=== PATIENT | female | born 1995 | race Caucasian/White ===

== ENCOUNTER 2018-01-13 14:02 | Emergency (ER) | payer OTHER ==
[2018-01-13] MEDS ORDERED: NA CHLORIDE 0.9% 1,000 ML ONE (14:41)
[2018-01-13 15:04] LABS: Absolute Lymphocytes (CBC) 1.6 K/uL (0.7-4.9); Absolute Monocytes 0.8 K/uL (0.1-1.3); Absolute Neutrophil 10.1 K/uL (1.8-8.0); Basophils % 0.3 % (0-1.3); Eosinophils % 0.6 % (0-4.4); Hematocrit 28.7 % (36.0-45.0); Lymphocytes % 12.7 % (15.3-44.8); MCH 31.1 pg (27.0-35.0); MPV 8.4 fL (7.6-11.3); RBC Red Blood Cell Count 3.15 M/uL (3.86-4.86)
[2018-01-13 15:23] LABS: ALT/SGPT 20 U/L (12-78); AST/SGOT 13 U/L (15-37); Albumin 2.7 g/dL (3.4-5.0); Alkaline Phosphatase 67 U/L (45-117); BUN Blood Urea Nitrogen 7 mg/dL (7-18); Bicarbonate 24 mmol/L (21-32); Bilirubin Direct < 0.1 mg/dL (0-0.2); Bilirubin Total 0.2 mg/dL (0.2-1.0); Glucose Level 68 mg/dL (74-106); Lipase 78 U/L (73-393); Potassium 3.5 mmol/L (3.5-5.1); Protein, Total 6.6 g/dL (6.4-8.2); Sodium Level 140 mmol/L (136-145)
--- NOTE | 2018-01-13 16:30 | EDPHYS ---
Physician Documentation [facility] Name: Diana Ward Age: 22 yrs Sex: Female : 1995 Arrival Date: 01/13/2018 Time: 14:06 Bed 5 Private MD: Ekaterina Molina ED Physician Norberto Brown HPI: 01/13 14:52 This 22 yrs old Female presents to ER via Ambulatory with complaints of jr8 Nausea/Vomiting/Diarrhea. 14:52 The patient presents to the emergency department with nausea, vomiting, diarrhea. jr8 Onset: The symptoms/episode began/occurred acutely, 3 day(s) ago. Possible causes: unknown. The symptoms are aggravated by food , The symptoms are alleviated by nothing. Associated signs and symptoms: Pertinent positives: dizzy. Severity of symptoms: At their worst the symptoms were moderate in the emergency department the symptoms have improved moderately. The patient has not experienced similar symptoms in the past. The patient has not recently seen a physician. Patient with minimal nausea and diarrhea now. Feels dehydrated and dizzy from all the vomiting and diarrhea over the past few days. Patient 23 weeks . 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 - Social history:: Smoking status: Patient/guardian denies using tobacco. - Ebola Screening: : Patient negative for fever greater than or equal to 101.5 degrees Fahrenheit, and additional compatible Ebola Virus Disease symptoms Patient denies exposure to infectious person Patient denies travel to an Ebola-affected area in the 21 days before illness onset No symptoms or risks identified at this time. ROS: 14:52 Eyes: Negative for injury, pain, redness, and discharge, ENT: Negative for injury, jr8 pain, and discharge, Neck: Negative for injury, pain, and swelling, Cardiovascular: Negative for chest pain, palpitations, and edema, Respiratory: Negative for shortness of breath, cough, wheezing, and pleuritic chest pain, Back: Negative for injury and pain, MS/Extremity: Negative for injury and deformity, Skin: Negative for injury, rash, and discoloration, Neuro: Negative for headache, weakness, numbness, tingling, and seizure. 14:52 Abdomen/GI: Positive for nausea, vomiting, and diarrhea, Negative for abdominal pain, abdominal distension, anorexia, dysphagia, hematemesis, black/tarry stool, rectal pain, rectal bleeding, bowel incontinence, flatulence. Exam: 14:52 Eyes: Pupils equal round and reactive to light, extra-ocular motions intact. Lids and jr8 lashes normal. Conjunctiva and sclera are non-icteric and not injected. Cornea within normal limits. Periorbital areas with no swelling, redness, or edema. ENT: Nares patent. No nasal discharge, no septal abnormalities noted. Tympanic membranes are normal and external auditory canals are clear. Oropharynx with no redness, swelling, or masses, exudates, or evidence of obstruction, uvula midline. Mucous membranes moist. Neck: Trachea midline, no thyromegaly or masses palpated, and no cervical lymphadenopathy. Supple, full range of motion without nuchal rigidity, or vertebral point tenderness. No Meningismus. Cardiovascular: Regular rate and rhythm with a normal S1 and S2. No gallops, murmurs, or rubs. Normal PMI, no JVD. No pulse deficits. Respiratory: Lungs have equal breath sounds bilaterally, clear to auscultation and percussion. No rales, rhonchi or wheezes noted. No increased work of breathing, no retractions or nasal flaring. Abdomen/GI: Soft, non-tender, with normal bowel sounds. No distension or tympany. No guarding or rebound. No evidence of tenderness throughout. Gravid abdomen present Back: No spinal tenderness. No costovertebral tenderness. Full range of motion. Skin: Warm, dry with normal turgor. Normal color with no rashes, no lesions, and no evidence of cellulitis. MS/ Extremity: Pulses equal, no cyanosis. Neurovascular intact. Full, normal range of motion. Neuro: Awake and alert, GCS 15, oriented to person, place, time, and situation. Cranial nerves II-XII grossly intact. Motor strength 5/5 in all extremities. Sensory grossly intact. Cerebellar exam normal. Normal gait. Vital Signs: 14:14 BP 132 / 70; Pulse 100; Resp 17; Temp 98.8(TE); Pulse Ox 98% on R/A; sg 16:29 BP 112 / 64; Pulse 79; Resp 18; Pulse Ox 98% on R/A; ae1 MDM: 14:17 Patient medically screened. [facility] 14:52 Data reviewed: vital signs, nurses notes, lab test result(s). Data interpreted: Pulse 8 oximetry: on room air is 98 %. Interpretation: normal. 16:29 Counseling: I had a detailed discussion with the patient and/or guardian regarding: the jr8 historical points, exam findings, and any diagnostic results supporting the discharge/admit diagnosis, lab results, the need for outpatient follow up, a family practitioner, to return to the emergency department if symptoms worsen or persist or if there are any questions or concerns that arise at home. ED course: Patient able to tolerate fluids and food. Will send home on nausea medicine. To continue to hydrate. F/U with neurological surgeon in a few days . 01/13 14:31 Order name: Basic Metabolic Panel; Complete Time: 15:24 [facility] 01/13 14:31 Order name: CBC with Diff; Complete Time: 15:09 [facility] 01/13 14:31 Order name: Creatinine for Radiology; Complete Time: 15:22 [facility] 01/13 14:31 Order name: Hepatic Function; Complete Time: 15:24 [facility] 01/13 14:31 Order name: Lipase; Complete Time: 15:24 [facility] 01/13 14:31 Order name: Urine Test (obtain specimen); Complete Time: 16:34 [facility] 01/13 14:31 Order name: IV Saline Lock; Complete Time: 14:58 [facility] 01/13 14:31 Order name: Labs collected and sent; Complete Time: 14:58 [facility] 01/13 14:31 Order name: Urine Dipstick-Ancillary (obtain specimen); Complete Time: 16:34 [facility] 01/13 16:50 Order name: Urine Dipstick--Ancillary (enter results) eb Administered Medications: 14:58 Drug: NS 0.9% 1000 ml Route: IV; Rate: 1000 ml; Site: right antecubital; aj 17:19 Follow up: IV Status: Completed infusion ae1 Disposition: 17:22 Co-signature as Attending Physician, Norberto Brown MD I agree with the assessment and kdr plan of care. Disposition: 01/13/18 16:30 Discharged to Home. Impression: Gastroenteritis, Dehydration. - Condition is Stable. - Discharge Instructions: Dehydration, Adult. - Prescriptions for ondansetron 4 mg Oral tablet,disintegrating - take 1 tablet by ORAL route every 6-8 hours As needed; 12 tablet. - Medication Reconciliation Form, Thank You Letter, Antibiotic Education, Prescription Opioid Use, Work release form form. - Follow up: Ekaterina Molina MD; When: 5 - 6 days; Reason: Recheck today's complaints, Continuance of care, Re-evaluation by your physician. - Problem is new. - Symptoms have improved. Signatures: Dispatcher [employer] EDMS Juan Bautista RN RN Janice Hines RN RN Norberto Terrell MD MD kdr Boni Salazar PA PA jr8 Oscar Stanley RN RN ae1 Corrections: (The following items were deleted from the chart) 16:30 16:30 01/13/2018 16:30 Discharged to Home. Impression: Gastroenteritis. Condition is jr8 Stable. Forms are Medication Reconciliation Form, Thank You Letter, Antibiotic Education, Prescription Opioid Use. Follow up: Ekaterina Molina; When: 5 - 6 days; Reason: Recheck today's complaints, Continuance of care, Re-evaluation by your physician. Problem is new. Symptoms have improved. jr8 17:19 16:30 01/13/2018 16:30 Discharged to Home. Impression: Gastroenteritis; Dehydration. ae1 Condition is Stable. Forms are Medication Reconciliation Form, Thank You Letter, Antibiotic Education, Prescription Opioid Use. Follow up: Ekaterina Molina; When: 5 - 6 days; Reason: Recheck today's complaints, Continuance of care, Re-evaluation by your physician. Problem is new. Symptoms have improved. jr8
--- NOTE | 2018-01-13 16:30 | ER ---
Nurse's Notes [facility] Name: Diana Ward Age: 22 yrs Sex: Female : 1995 Arrival Date: 01/13/2018 Time: 14:06 Bed 5 Private MD: Ekaterina Molina Diagnosis: Gastroenteritis;Dehydration Presentation: 01/13 14:12 Presenting complaint: Patient states: 28 wks , reports Nausea today and sg vomiting that began yesterday, reports diarrhea last night x1, pt states dizziness that starts today. Transition of care: patient was not received from another setting of care. Onset of symptoms was January 13, 2018. Risk Assessment: Do you want to hurt yourself or someone else? Patient reports no desire to harm self or others. Initial Sepsis Screen:. Care prior to arrival: None. 14:12 Method Of Arrival: Ambulatory sg 14:12 Acuity: FREIDA 3 sg 17:16 Initial Sepsis Screen: Does the patient meet any 2 criteria? No. Patient's initial ae1 sepsis screen is negative. Does the patient have a suspected source of infection? No. Patient's initial sepsis screen is negative. Triage Assessment: 14:45 GI: Reports nausea, vomiting. 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 - Social history:: Smoking status: Patient/guardian denies using tobacco. - Ebola Screening: : Patient negative for fever greater than or equal to 101.5 degrees Fahrenheit, and additional compatible Ebola Virus Disease symptoms Patient denies exposure to infectious person Patient denies travel to an Ebola-affected area in the 21 days before illness onset No symptoms or risks identified at this time. Screenin:31 Abuse screen: Denies threats or abuse. Nutritional screening: No deficits noted. ae1 Tuberculosis screening: No symptoms or risk factors identified. Fall Risk None identified. Assessment: 14:50 General: Appears in no apparent distress. uncomfortable, Behavior is calm, cooperative. ae1 Pain: Complains of pain in abdomen. Neuro: Level of Consciousness is awake, alert, obeys commands, Oriented to person, place, time, situation. Cardiovascular: Heart tones S1 S2 present Patient's skin is warm and dry. Respiratory: Airway is patent Respiratory effort is even, unlabored, Respiratory pattern is regular, symmetrical, Breath sounds are clear bilaterally. GI: Abdomen is round non-distended, Bowel sounds present X 4 quads. hyperactive in right lower quadrant and left lower quadrant Abd is soft and non tender. GI: Reports cramping, diarrhea, nausea, vomiting. : No signs and/or symptoms were reported regarding the genitourinary system. EENT: No signs and/or symptoms were reported regarding the EENT system. Derm: Skin is normal. Musculoskeletal: No signs and/or symptoms reported regarding the musculoskeletal system. 16:35 Reassessment: Patient appears in no apparent distress at this time. Patient states ae1 feeling better. Patient states symptoms have improved. Vital Signs: 14:14 BP 132 / 70; Pulse 100; Resp 17; Temp 98.8(TE); Pulse Ox 98% on R/A; sg 16:29 BP 112 / 64; Pulse 79; Resp 18; Pulse Ox 98% on R/A; ae1 ED Course: 14:06 Patient arrived in ED. sb2 14:07 Ekaterina Molina MD is Private Physician. sb2 14:11 Oscar Stanley, ANAHI is Primary Nurse. ae1 14:13 Triage completed. sg 14:14 Arm band placed on. sg 14:17 Boni Salazar PA is PHCP. jr8 14:17 Norberto Brown MD is Attending Physician. jr8 14:30 Placed in gown. Bed in low position. Call light in reach. Side rails up X 1. Pulse ox ae1 on. NIBP on. Warm blanket given. 14:56 Inserted saline lock: 20 gauge in right antecubital area, using aseptic technique. ag ,using aseptic technique. Patient asked if student could start IV and she agreed. IV started by student nurse [place] observed be Jory patient tolerated well. Blood collected. 14:58 Inserted saline lock: 20 gauge in right antecubital area, using aseptic technique. aj Blood collected. 14:59 Lipase Sent. ag 14:59 Urine Microscopic Only Sent. ag 14:59 Basic Metabolic Panel Sent. ag 14:59 CBC with Diff Sent. ag 14:59 Creatinine for Radiology Sent. ag 14:59 Hepatic Function Sent. ag 16:30 Ekaterina Molina MD is Referral Physician. jr8 17:18 No provider procedures requiring assistance completed. IV discontinued, intact, ae1 bleeding controlled, No redness/swelling at site. Pressure dressing applied. Administered Medications: 14:58 Drug: NS 0.9% 1000 ml Route: IV; Rate: 1000 ml; Site: right antecubital; aj 17:19 Follow up: IV Status: Completed infusion ae1 Outcome: 16:30 Discharge ordered by . jrErika 17:18 Discharged to home ambulatory. ae1 17:18 Condition: stable 17:18 Discharge instructions given to patient, Instructed on discharge instructions, follow up and referral plans. Demonstrated understanding of instructions. 17:19 Patient left the ED. ae1 Signatures: Juan Bautista, RN RN Janice Hines RN RN Boni Byrd PA PA jr8 Jory Cardona Andrea, RN RN ae1 Latanya Mars sb2 Corrections: (The following items were deleted from the chart) 15:51 14:56 Inserted saline lock: 20 gauge in right antecubital area, using aseptic ag technique. ,using aseptic technique. Patient asked if student could start IV and she agreed. IV started by student nurse JENA observed be Jory patient tolerated well. Blood collected. ag
[2018-01-13 17:32] LABS: Urine Blood TRACE (NEG); Urine Glucose NEGATIVE (NEG); Urine Protein NEGATIVE (NEG)
== END 2018-01-13 17:19 | disposition home or self-care (01) ==
LOC: ER 14:02
DX: K52.9 Noninfective gastroenteritis and colitis, unspecified (principal); E86.0 Dehydration; Z3A.23 23 weeks gestation of pregnancy
CPT/HCPCS: 36415; 80048; 80076; 81003; 83690; 85025; 96360; 96361; 99284; J7030